=== PATIENT | female | born 1960 | race Caucasian/White ===

== ENCOUNTER 2020-11-27 12:45 | Outpatient (CLI) | payer MEDICARE, SELFPAY ==
--- NOTE | ~2020-11-27 | MR_ITS ---
EXAMINATION: MR cervical spine wo/w con EXAM DATE: 11/27/2020 15:02 INDICATION: Neck pain. Multiple sclerosis. TECHNIQUE: Multi-sequential, multiplanar MR images of the cervical spine were obtained without contra st. Axial T2, axial T2 MERGE sequence. Sagittal T1, T2, T2 fat saturation images also obtained. Axi al T1 weighted sequence. Patient was then injected with 9 mL Multihance intravenous contrast and grace froy. Postcontrast axial and sagittal T1-weighted fat saturation sequences were obtained. FINDINGS: The vertebral bodies are aligned in the AP dimension. Vertebral body and disc heights are well-maintained. There are no suspicious marrow signal abnormalities. The spinal cord signal intensit y and intrinsic morphology is normal. Cervicomedullary junction is normal in appearance. Paraspinal s oft tissue is unremarkable. There are no areas of abnormal enhancement on the post contrast images. Level by level evaluation: C2-C3: Disc does not extend beyond the endplate margin. Uncovertebral joint arthropathy: None. Facet joint arthropathy: Mild bilateral. Neural foraminal stenosis: No stenosis. Central canal stenosis: No stenosis. C3-C4: Disc does not extend beyond the endplate margin. Uncovertebral joint arthropathy: None. Facet joint arthropathy: Mild bilateral. Neural foraminal stenosis: No stenosis. Central canal stenosis: No stenosis. C4-C5: Disc does not extend beyond the endplate margin. Uncovertebral joint arthropathy: Mild bilateral. Facet joint arthropathy: Mild bilateral. Neural foraminal stenosis: No stenosis. Central canal stenosis: No stenosis. C5-C6: Disc does not extend beyond the endplate margin. Uncovertebral joint arthropathy: Mild bilateral. Facet joint arthropathy: Mild bilateral. Neural foraminal stenosis: No stenosis. Central canal stenosis: No stenosis. C6-C7: There is a mild diffuse disc bulge. Uncovertebral joint arthropathy: Moderate left, mild to moderate right. Facet joint arthropathy: Mild to moderate left, no right. Neural foraminal stenosis: No stenosis. Central canal stenosis: No stenosis. C7-T1: Disc does not extend beyond the endplate margin. Uncovertebral joint arthropathy: Mild bilateral. Facet joint arthropathy: Mild bilateral. Neural foraminal stenosis: No stenosis. Central canal stenosis: No stenosis. IMPRESSION: 1. Normal cervical spinal cord signal. 2. C6-7 mild to moderate left neural foraminal stenosis, the most narrowed level. Reviewed, dictated and finalized at location A. IMPRESSION: 1. Normal cervical spinal cord signal. 2. C6-7 mild to moderate left neural foraminal stenosis, the most narrowed lev el.
--- NOTE | ~2020-11-27 | MR_ITS ---
EXAMINATION: MR brain/brain stem wo/w con EXAM DATE: 11/27/2020 15:02 INDICATION: Neck pain. Multiple sclerosis. Headache. TECHNIQUE: Magnetic resonance imaging (MRI) of the brain/brain stem obtained without contrast. Sagit laura T1, axial diffusion, gradient echo (T2*), T1, T2, FLAIR sequences obtained. Patient was then inj ected with 9 cc intravenous Multihance contrast. Axial and coronal postcontrast T1 weighted sequences obtained. Correlation is made to head CT 09/29/2018. FINDINGS: Scattered mild to moderate amount of small periventricular white matter T2/FLAIR signal hyp erintensities, could be microangiopathy or multiple sclerosis given history provided, some involve ma rgins of the corpus callosum and do have orientation perpendicular to the ventricles. No posterior fo ssa lesions. There are no areas of abnormal enhancement on the post contrast images. There are no areas of restricted diffusion to suggest acute infarction. There is no acute hemorrhage seen on the T2*, a hemosiderin sensitive sequence. No intraparenchymal brain mass. The ventricles a re normal in size. There are no extra-axial collections. Flow voids are seen in the cerebral arteri es on the T2-weighted sequences consistent with their expected patency. Patient has had bilateral oc ular lens surgery. Soft tissue is unremarkable. IMPRESSION: 1. Scattered periventricular signal abnormalities, could be microangiopathy or multiple sclerosis. 2. No acute findings. Reviewed, dictated and finalized at location A.
[2020-11-27 13:34] LABS: Estimated Glomerular Filt Rate > 60
== END 2020-11-27 12:46 | disposition home or self-care (01) ==
PROVIDERS: PCP Internal Medicine; Visit Provider Internal Medicine Rheumatology
DX: G35 Multiple sclerosis (principal)
CPT/HCPCS: 70553; 72156; A9577

== ENCOUNTER 2021-02-24 10:47 | Outpatient (CLI) | payer MEDICARE, SELFPAY ==
--- NOTE | ~2021-02-24 | US_ITS ---
US venous doppler [facility] DATE: 02/24/2021 11:21 INDICATION: Left lower extremity pain. History of deep venous thrombosis. TECHNIQUE: Real-time and color flow imaging and Doppler analysis of the veins of the left lower extre mity COMPARISON: None FINDINGS: The left greater saphenous vein is patent. There is spontaneous and phasic flow and normal augmentation and color flow signal and normal zenia fabio of the deep veins of the left leg. IMPRESSION: Normal examination Reviewed, dictated and finalized at Location A. Reviewed, dictated and finalized at location A. IMPRESSION: Normal examination
== END 2021-02-24 10:48 | disposition home or self-care (01) ==
LOC: ANHIMG 10:51
PROVIDERS: PCP Internal Medicine; Visit Provider Nurse Practitioner
DX: M79.605 Pain in left leg (principal); R60.9 Edema, unspecified
CPT/HCPCS: 93971

== ENCOUNTER 2021-04-30 10:53 | Outpatient (CLI) | payer MEDICARE, SELFPAY ==
--- NOTE | ~2021-04-30 | XR_ITS ---
EXAMINATION: XR hip LT min 2V DATE: 04/30/2021 11:23 INDICATION: Left lower limb pain. TECHNIQUE: 2 views of left hip were obtained. COMPARISON: Left hip radiographs 08/08/2007 FINDINGS: Bone alignment is normal. No fracture. There is mild left hip osteoarthritis. IMPRESSION: 1. Mild left hip osteoarthritis. Reviewed, dictated and finalized at location A.
--- NOTE | ~2021-04-30 | XR_ITS ---
EXAMINATION: XR lumbar spine 2-3V DATE: 04/30/2021 11:24 INDICATION: Left-sided low back pain TECHNIQUE: Anteroposterior and lateral views of the lumbar spine, and cone-down lateral view of the l umbosacral junction were obtained. COMPARISON: 04/07/2018 FINDINGS: There is no fracture, dislocation, or subluxation. There is unchanged mild to moderate loss of intervertebral disc space height at L4-5. There is mild loss of intervertebral disc space height throughout the remainder of the lumbar spine. The vertebral body heights are maintained. Small degene rative osteophytes project from the anterior endplates of multiple vertebral bodies. There is unchang ed mild to moderate facet osteoarthritis at L4-5 and L5-S1. IMPRESSION: 1. Mild lumbar spondylosis without acute findings or significant interval change. Reviewed, dictated and finalized at location B. IMPRESSION: 1. Mild lumbar spondylosis without acute findings or significant interval nadira anton
== END 2021-04-30 10:54 | disposition home or self-care (01) ==
PROVIDERS: PCP Internal Medicine; Visit Provider Internal Medicine
DX: M47.817 Spondylosis without myelopathy or radiculopathy, lumbosacral region (principal); M17.12 Unilateral primary osteoarthritis, left knee
CPT/HCPCS: 72100; 73502

== ENCOUNTER 2021-06-04 13:49 | Outpatient (CLI) | payer MEDICARE, SELFPAY ==
--- NOTE | ~2021-06-04 | MR_ITS ---
EXAMINATION: MR lumbar spine wo con DATE: 06/04/2021 14:50 INDICATION: Left leg pain. TECHNIQUE: Magnetic resonance imaging (MRI) of the lumbar spine was performed without intravenous con trast. Sequences included sagittal T2-weighted FSE, sagittal T2-weighted FS FSE, sagittal T1-weighted FSE, and axial T2-weighted FSE. COMPARISON: Lumbar spine MRI 11/07/2018 FINDINGS: Bone alignment is normal. There are Schmorl's nodes at L3-L4. There is mildly decreased dis c height at L4-L5. The distal spinal cord signal intensity is normal. The conus medullaris is at T12. The following disc levels are specifically discussed: L1-L2: The disc is bulging with superimposed left foraminal extrusion. There is mild bilateral facet joint osteoarthritis. There is mild bilateral neural foraminal stenosis. There is no central canal st enosis. L2-L3: The disc is bulging. There is mild bilateral facet joint osteoarthritis. There is mild bilater al neural foraminal stenosis. There is mild central canal stenosis. L3-L4: The disc is mildly bulging. There is severe bilateral facet joint osteoarthritis. There is mil d bilateral neural foraminal stenosis. There is no central canal stenosis. L4-L5: The disc is bulging and has an annular fissure. There is moderate right and severe left facet joint osteoarthritis. There is mild bilateral neural foraminal stenosis. There is mild central canal stenosis. L5-S1: The disc is bulging with superimposed left subarticular zone extrusion with mass effect on lef t S1 nerve root in left lateral recess. There is moderate right and severe left facet joint osteoarth ritis. There is mild bilateral neural foraminal stenosis. There is mild central canal stenosis. There is severe stenosis of left lateral recess. IMPRESSION: 1. New extrusion at L5-S1 with mass effect on left S1 nerve root. 2. Otherwise mild lumbar spondylosis. Reviewed, dictated and finalized at location A.
== END 2021-06-04 13:50 | disposition home or self-care (01) ==
LOC: ANHIMG 13:55
PROVIDERS: PCP Internal Medicine; Visit Provider Internal Medicine
DX: M47.817 Spondylosis without myelopathy or radiculopathy, lumbosacral region (principal); M48.07 Spinal stenosis, lumbosacral region
CPT/HCPCS: 72148

== ENCOUNTER 2021-12-07 08:30 | Emergency (ER) | payer MEDICARE, MEDICAID, SELFPAY ==
[2021-12-07] VITALS (7 sets, daily range): BP systolic 119–147; BP diastolic 74–95; PULSE 67–84; RESP 10–20; TEMP 36.7; O2SAT 98–100
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
--- NOTE | 2021-12-07 08:35 | ECG_ITS ---
Measurements Intervals [employer] Rate: 74 P: 30 HI: 142 QRS: 89 QRSD: 92 T: 76 QT: 388 QTc: 431 Interpretive Statements SINUS RHYTHM BASELINE ARTIFACT BORDERLINE ST ABNORMALITY INFERIOR LEADS BORDERLINE ECG COMPARED TO ECG 11/02/2018 11:56:57 HEART RATE HAS DECREASED Electronically Signed On 12-07-2021 11:30:57 CDT by Dane Mccain M.D.
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
--- NOTE | 2021-12-07 08:50 | PC.NURSE ---
Pt tells this nurse that she used Valium and 2 pinches of pot this am. Also take Fentanyl for her MD.
[2021-12-07 09:33] LABS: Basophils Percent Auto 0.6 % (0.2-1.2); Eosinophils Absolute Auto 0.1 K/mm3 (0-0.3); Hemoglobin 14.3 g/dL (12.0-15.0); Immature Granulocyte Absolute 0.02 K/mm3 (0.00-0.031); Immature Granulocyte Percent A 0.3 % (0-0.5); Lymphocytes Percent Auto 11.3 % (18.3-44.2); Mean Corpuscular HGB Conc 32.5 g/dl (32-36); Mean Corpuscular Volume 92.4 fl (80-100); Monocytes Absolute Auto 0.9 K/mm3 (0.1-0.6); Monocytes Percent Auto 12.9 % (2.6-8.5); Neutrophils Absolute Auto 5.2 K/mm3 (1.3-6.7); Neutrophils Percent Auto 72.9 % (45.5-73.1); Platelet Count Result 292 k/mm3 (150-375); Red Blood Count 4.76 M/mm3 (4.2-5.4); White Blood Count 7.1 K/mm3 (4.5-10.0)
[2021-12-07 09:42] LABS: Ethanol < 10 mg/dL (<10)
[2021-12-07 09:43] LABS: Alanine Aminotransferase 16 U/L (4-35); Albumin Level 4.1 g/dL (3.5-5.1); Alkaline Phosphatase 85 U/L (38-126); Anion Gap 5 mmol/L (8-16); Aspartate Amino Transferase 28 U/L (14-36); Bilirubin,Total 0.2 mg/dL (0.2-1.3); Blood Urea Nitrogen 16 mg/dL (7-17); Calcium 8.4 mg/dL (8.4-10.2); Carbon Dioxide 32 mmol/L (22-30); Chloride 99 mmol/L (98-107); Estimated CRCL calculation 64 ml/min; Estimated Glomerular Filt Rate > 60; Glucose 75 mg/dL (65-110); Potassium 3.7 mmol/L (3.4-5.0); Sodium 136 mmol/L (137-145)
[2021-12-07 09:55] LABS: Appearance Urine Clear (Clear); Bilirubin Urine Negative (Negative); Blood Urine Negative (Negative); Color Urine Yellow (Yellow); Glucose Urine UA Negative (Negative); Ketones Urine Negative (Negative); Leukocyte Esterase Ur 1+ LEU/UL (Negative); Nitrate Urine Negative (Negative); Protein Urine Negative (Negative); Specific Grav Ur >= 1.030 (1.001-1.035); Urobilinogen Urine 0.2 mg/dL (<2.0); pH Urine 5.5 (5.0-9.0)
[2021-12-07 10:00] LABS: Amphetamine Screen Urine Positive (Negative); Barbiturate Screen Urine Negative (Negative); Benzodiazepines Screen Urine Positive (Negative); Cannabinoid Screen Urine Positive (Negative); Cocaine Screen Urine Negative (Negative); Methadone Screen Urine Negative (Negative); Opiate Screen Urine Positive (Negative); Phencyclidine Screen Urine Negative (Negative)
[2021-12-07 10:04] LABS: INR 1.2; Prothrombin Time 14.8 Seconds (11.1-14.7)
[2021-12-07 10:05] LABS: Partial Thromboplastin Time 37.6 SECONDS (22.3-36.8)
[2021-12-07 10:06] LABS: Mucus Urine Rare /lpf; Squamous Epithelial Cell Urine Few /hpf (Few)
[2021-12-07 10:07] LABS: Add Urine Microscopic? YES
--- NOTE | 2021-12-07 10:45 | PC.NURSE ---
Patient able to ambulate without difficulty. EDP [place] notified.
[2021-12-07] MEDS: NITROFURANTOIN MONOHYD MACROCR 100 MG CAP PO (11:19)
== END 2021-12-07 11:36 | disposition home or self-care (01) ==
PROVIDERS: Emergency Provider Emergency Medicine; PCP Internal Medicine
DX: R41.82 Altered mental status, unspecified (principal); F19.10 Other psychoactive substance abuse, uncomplicated; M54.9 Dorsalgia, unspecified; G89.29 Other chronic pain; F17.210 Nicotine dependence, cigarettes, uncomplicated; Z79.01 Long term (current) use of anticoagulants; Z79.899 Other long term (current) drug therapy; R94.31 Abnormal electrocardiogram [ECG] [EKG]; V47.0XXA Car driver injured in collision with fixed or stationary object in nontraffic accident, initial encounter
CPT/HCPCS: 36415; 70450; 71045; 72125; 73502; 80053; 80307; 81001; 85025; 85610; 85730; 87086; 87088; 93005; 99284; A9270

== ENCOUNTER 2022-03-15 08:29 | Outpatient (CLI) | payer MEDICARE, MEDICAID, SELFPAY ==
--- NOTE | ~2022-03-15 | XR_ITS ---
XR_CERV2-3V_CR 03/15/2022 09:04 Indication: Radiculopathy. Neck pain. Procedure: 4 views of the cervical spine Comparison: 12/05/2018 Findings: Vertebral body heights are maintained. No fracture or traumatic malalignment. No prevertebr al soft tissue swelling. There is mild uncinate degenerative change. Port catheter tip not visualized . Lung apices are unremarkable. Odontoid process is normal. There are mild uncinate degenerative choi ges at C5-6 and C6-7. Mild disc narrowing at C6-7 and C7-T1. Impression: 1: Mild cervical spondylosis. Reviewed, dictated and finalized at location A. Impression: 1: Mild cervical spondylosis.
--- NOTE | ~2022-03-15 | XR_ITS ---
XR lumbar spine 2-3V 03/15/2022 09:04 Indication: Low back pain. Radiculopathy. Procedure: 3 views lumbar spine Comparison: Comparison to multiple prior studies sequentially, with oldest reviewed study dated 09/2016. Findings: Vertebral body heights are maintained. There is mild degenerative changes of the endplates at L3-4. There is mild multilevel facet hypertrophy at L3-4, L4-5 and L5-S1. No acute fracture or tra umatic malalignment. No evidence for spondylolisthesis. Pedicles intact. There are marginal osteophyt es laterally at multiple levels. Sacral foramen are symmetric. Impression: 1: Mild lumbar spondylosis. Reviewed, dictated and finalized at location A. Impression: 1: Mild lumbar spondylosis.
--- NOTE | ~2022-03-15 | XR_ITS ---
EXAMINATION: XR thoracic spine 3V DATE: 03/15/2022 09:04 INDICATION: Thoracic back pain TECHNIQUE: AP, lateral and lateral swimmer's views of the thoracic spine were obtained. COMPARISON: MRI, 11/07/2018 FINDINGS: A right internal jugular Port-A-Cath is noted. Bone alignment is normal. There is no fractu re. The vertebral body heights are maintained. There is mild loss of intervertebral disc space height at multiple levels in the thoracic spine. Small degenerative osteophytes project from the anterior e ndplates of multiple vertebral bodies. IMPRESSION: 1. Mild thoracic spondylosis without acute findings or significant interval change. Reviewed, dictated and finalized at location B. IMPRESSION: 1. Mild thoracic spondylosis without acute findings or significant interval jose e.
== END 2022-03-15 08:30 | disposition home or self-care (01) ==
PROVIDERS: PCP Internal Medicine; Visit Provider Pain Medicine Interventional Pain Medicine
DX: M54.14 Radiculopathy, thoracic region (principal); M54.12 Radiculopathy, cervical region; M54.17 Radiculopathy, lumbosacral region; M47.814 Spondylosis without myelopathy or radiculopathy, thoracic region; M47.812 Spondylosis without myelopathy or radiculopathy, cervical region; M47.816 Spondylosis without myelopathy or radiculopathy, lumbar region
CPT/HCPCS: 72040; 72072; 72100

== ENCOUNTER 2022-04-05 05:10 | Day surgery (SDC) | payer MEDICARE, MEDICAID, SELFPAY ==
[2022-03-30 14:53] VITALS: BMI 19.0
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
[2022-04-05 10:25] VITALS: BP 101/70; PULSE 79; RESP 18; TEMP 36.3; O2SAT 98
--- NOTE | 2022-04-05 10:27 | SUR.PREOP ---
Patient has fent patch on lower back. Notified Dr. Jay of this, ok for patient to leave this in place. No new orders at this time.
--- NOTE | 2022-04-05 10:39 | PM.IMHP ---
H&P: HPI History of Present Illness Date/Time: 04/05/22 10:39 Chief Complaint: Family history of colon cancer. Narrative: This is a 61-year-old white female patient referred by primary care service because of family history of colon cancer. Patient reports her mother recently with colon cancer her father with colon cancer 10 years ago. Patient is reported to have had colon polyps in 2018. Previous colonoscopy by Dr. Nba Webster revealed poor preparation. Patient presents today for follow-up colonoscopy. Patient denies any blood in her stools. She does have a past history of multiple sclerosis. She reports having had previous extensive surgery on her thyroid gland in the past. Review of Systems Review of Systems: Review of systems noncontributory. [facility] Past Medical History Medical History (Updated 04/05/22 @ 10:41 by Nba Simpson MD) Chronic pain fentanyl patch Chronic, continuous use of opioids Current smoker Dysphagia, unspecified Hx of deep venous thrombosis Hyperlipidemia Multiple sclerosis Paresthesias in left hand Partial thickness burn Port-A-Cath in place Protein C deficiency Protein S deficiency Right thigh pain Screening for breast cancer Screening for breast cancer Screening for colon cancer Surgical History Surgical History (Updated 04/02/22 @ 14:46 by Teodoro Saavedra DO) History of appendectomy Family History Family History Sibling Patient's sister is in good health Father Carcinoma of colon, Onset Age: 73 Patient's father is Mother Heart disease Social History Social History Smoking packs per day: 0.5 Smoking cigarettes per day: 10.0 Years smoked: 42 Smoking pack-years: 21.00 Smoking status: Heavy tobacco smoker Tobacco type: cigarettes Second hand tobacco smoke exposure: Yes Alcohol intake: current Alcohol use details: rarely Substance use: current Substance use type: marijuana Living arrangements: alone Spiritual care concerns: No Meds Home Medications and Allergies Home Medications Medication Instructions Recorded Confirmed Type fentanyl 50 mcg/hr transdermal 1 patch transdermal Q72H 08/28/19 03/30/22 History patch dextroamphetamine sulfate 15 mg 15 mg PO BID 05/22/20 03/30/22 History capsule,extended release trazodone 50 mg tablet See Rx Instructions .Route 05/02/21 03/30/22 Rx .COMPLEX #60 tabs carisoprodol 350 mg tablet 350 mg PO DAILY 12/07/21 03/30/22 History apixaban 5 mg tablet (Eliquis) 5 mg PO DAILY #90 tabs 01/21/22 03/30/22 Rx diazepam 5 mg tablet 5 mg PO TID PRN anxiety #90 tabs 02/10/22 03/30/22 Rx Allergies Allergy/AdvReac Type Severity Reaction Status Date / Time adhesive tape Allergy Intermediate BLISTERS Verified 04/05/22 10:23 sertraline AdvReac Severe Headache Verified 04/05/22 10:23 Vital Signs Vital Signs - 24 hr 04/05/22 10:25 Temperature 97.4 F L Pulse Rate 79 Respiratory Rate 18 Blood Pressure 101/70 Pulse Oximetry 98 Oxygen Delivery Room Air Exam Narrative: Physical exam reveals patient to be alert. Vital signs stable. HEENT exam is unremarkable. Patient is anicteric. Lungs are clear to auscultation and percussion. Heart is without murmur or extra sounds. Abdominal exam bowel sounds are present soft nontender with no organomegaly. Digital external rectal exam is normal. Assessment and Plan Assessment and plan (1) Family hx of colon cancer: Code(s): Z80.0 - Family history of malignant neoplasm of digestive organs Status: Acute Assessment and Plan: Patient reports family history of colon cancer in both mother and father. She herself apparently had colon polyps several years ago. Plan is for surveillance colonoscopy at this time.
[2022-04-05] MEDS: LACTATED RINGERS 1,000 ML 150 ML IV CONT (10:40)
[2022-04-05 10:58] VITALS: BP 81/49; PULSE 64; RESP 20; O2SAT 98
[2022-04-05 11:08] VITALS: BP 95/55; PULSE 62; RESP 18; O2SAT 100
== END 2022-04-05 11:36 | disposition home or self-care (01) ==
PROVIDERS: PCP Internal Medicine; Visit Provider Internal Medicine Gastroenterology
PROC: 0DJD8ZZ Inspection of Lower Intestinal Tract, Via Natural or Artificial Opening Endoscopic (ICD-10-PCS; CPT 45378; principal; 2022-04-05 11:00)
DX: Z09 Encounter for follow-up examination after completed treatment for conditions other than malignant neoplasm (principal); Z80.0 Family history of malignant neoplasm of digestive organs; G35 Multiple sclerosis; E78.5 Hyperlipidemia, unspecified; D68.59 Other primary thrombophilia; G89.29 Other chronic pain; F17.210 Nicotine dependence, cigarettes, uncomplicated; F12.90 Cannabis use, unspecified, uncomplicated; Z86.718 Personal history of other venous thrombosis and embolism; Z79.01 Long term (current) use of anticoagulants; Z79.891 Long term (current) use of opiate analgesic
CPT/HCPCS: 45378; J2704; J7120

== ENCOUNTER 2022-06-11 15:30 | Outpatient (RCR) | payer MEDICARE, MEDICAID, SELFPAY ==
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
--- NOTE | 2022-04-08 13:30 | PCPTNOTE ---
Patient called & cancelled scheduled appointment this date due to having car trouble.
--- NOTE | 2022-04-21 11:41 | PTOPPROG ---
Evaluation Information Assessment Status Re-evaluation Subjective Information Alexandra reports: therapy has helped her walk better, not have to use the crutches as much; with the MS , her balance is always bad; wants to continue therapy; Assessment PT Clinical Summary Alexandra has received 7 PT sessions for the diagnosis of L hip pain, lumbar radicular pain. Compared to the initial evaluation, her pain rating has decreased by 1 at the low and high ratings; continues to have radicular pain into posterior L leg to foot; continues to have tenderness over L lumbar-sacral and mid buttock areas; strength of L hip has increased; L hamstring flexibility has increased; gait pattern has improved; education has been provided for home exercises, posture and back pain management. The goals were partially achieved. Continue PT treatment to further decrease her pain and increase strength and mobility skills. Plan of Care Interventions Electrical Stimulation,Gait Training,Hot Pack/Cold Pack,Manual Therapy,Mechanical Traction,Patient/ Caregiver Education,Therapeutic Activities, Therapeutic Exercise,Ultrasound PT Services Indicated Yes Treatment Frequency and 2x/wk for 4 weeks Duration These treatments will address the objective and functional deficits as defined above. The patient will be advanced safely and appropriately in order for the patient to progress towards his/her prior level of function. Additional exercises will be introduced and as well as a comprehensive home exercise program upon discharge, if needed, ?to ensure carryover of functional gains achieved in the clinic. This treatment plan has been reviewed and agreement upon by the patient.
--- NOTE | 2022-05-05 11:04 | PCPTNOTE ---
Patient called & cancelled scheduled appointment this date due to having a headache.
--- NOTE | 2022-05-07 10:15 | PCPTNOTE ---
Patient called & cancelled scheduled appointment this date due to having a sore throat and a cough. Patient is scheduled for her next appointment on 05/11/22.
--- NOTE | 2022-05-19 14:13 | PTOPEVAL1 ---
Assessment and note entered by Asiya Whitt, PT Evaluation Information Assessment Status Re-evaluation Subjective Information Alexandra states: with walking, have to really focus walking right, putting heel down first; pain is less with the treatments; have been working on getting off these medicines; used crutches 4-5 days in the past week for walking; want to continue therapy--feel like it is helping. Reported Pain Level Pain Score Self Report low back and L LE Additional Pain Score Comments range of 6-9/10; reports standing/walking tolerance of 30-45 min; radicular pain into L LE to toes intermittently with constant into L lateral mid calf--locked up and tight; electrical stim helps pain--do not have a home unit; in bed, rolls L leg out/ER pain is less Assessment PT Clinical Summary Alexandra has had 14 PT sessions. Compared to the last reevaluation: pain rating is the same at the low rating and 1 more at the high rating but pt reports she is better ; radicular pain into L LE is the same; reported standing/ walking tolerance is better, from 20-30 min to 30- 45 min; improved with supine L hip flexion and ER motions does not have pain; functional strength with supine and side lying L hip exercises are slightly less; single leg standing time is increased, but still unstable at hip/trunk; Modalities help to decrease her pain and HEP has been progressed. Continue PT treatment to further decrease her pain , increase trunk and hip strength. Plan of Care Interventions Electrical Stimulation,Gait Training,Manual Therapy,Mechanical Traction,Patient/Caregiver Education,Therapeutic Activities,Therapeutic Exercise,Self-Care/Home Management PT Services Indicated Yes Treatment Frequency and 2x/wk for 3 weeks Duration These treatments will address the objective and functional deficits as defined above. The patient will be advanced safely and appropriately in order for the patient to progress towards his/her prior level of function. Additional exercises will be introduced and as well as a comprehensive home exercise program upon discharge, if needed, ?to ensure carryover of functional gains achieved in the clinic. This treatment plan has been reviewed and agreement upon by the patient.
--- NOTE | 2022-06-03 14:22 | PCPTNOTE ---
Patient did not show up for scheduled appointment this date. Called left voicemail about missed appointment and up coming appointment.
--- NOTE | 2022-06-11 16:08 | PTOPDC ---
Assessment and note entered by Asiya Whitt, PT Evaluation Information Assessment Status Discharge Subjective Information Alexandra reports: doing better, loosening up in L hip , is doing the exercises; pain is still there, is irritating but not as bad; Reported Pain Level Pain Score Self Report Additional Pain Score Comments pain range of 4-8/10; normal MS pain is 4-5/10 in legs; L hip pain is irritating pain-- pointed to lateral hip, lateral calf, proximal patella; intermittent to foot, usually constant to mid- lateral thigh; at home, is doing everything she needs to do inside and outside-takes more time and split up tasks due to pain; walks dogs about 4 blocks--hills and large blocks, cut grass; discussed self management for pain--heat, stretch, electrical stim, activity balance--activity/rest; Assessment PT Clinical Summary Alexandra has received 17 PT sessions for back and L leg pain. Compared to the last reevaluation: pain rating from 6-9/10 to 4-8/10; radicular pain into L LE is the same; hamstring length increased by 5' with SLR stretch; slight increase in L hip with supine SLR and increased single leg standing time; She has been educated on home exercises and pain management. The goals were partially met, Discharge PT services, she is to continue with HEP Plan of Care PT Services Indicated No
== END 2022-06-14 10:24 | disposition home or self-care (01) ==
LOC: ANHPT 15:30
PROVIDERS: PCP Internal Medicine; Visit Provider Nurse Practitioner
DX: M25.552 Pain in left hip (principal)
CPT/HCPCS: 97014; 97110; 97112; 97140; 97163; 97530; 99199; G0283

== ENCOUNTER 2022-06-24 09:45 | Outpatient (CLI) | payer MEDICARE, MEDICAID, SELFPAY ==
--- NOTE | ~2022-06-24 | XR_ITS ---
EXAMINATION: XR barium swallow DATE: 06/24/2022 10:33 INDICATION: Dysphagia. TECHNIQUE: The patient drank thick barium, gas-producing crystals, and thin barium. Fluoroscopic spot radiographs of the hypopharynx and esophagus were obtained. Fluoroscopy exposure time was 2.0 minut es. COMPARISON: None. FINDINGS: The pharynx is symmetric and without evidence of mass lesion or mucosal irregularity. The e sophagus is normal without mass or stricture. Esophageal motility is normal. There is no hiatal herni a. There was no gastroesophageal reflux with provocative maneuvers. IMPRESSION: 1. Normal esophagram. Reviewed, dictated and finalized at location B. IMPRESSION: 1. Normal esophagram.
== END 2022-06-24 09:46 | disposition home or self-care (01) ==
PROVIDERS: PCP Internal Medicine; Visit Provider Nurse Practitioner
DX: R13.10 Dysphagia, unspecified (principal)
CPT/HCPCS: 74220

== ENCOUNTER 2022-08-04 12:30 | Outpatient (RCR) | payer MEDICARE, MEDICAID, SELFPAY ==
--- NOTE | 2022-07-07 11:56 | PTOPEVAL1 ---
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 Patient reports it hurts with any weightbearing especially walking and stairs. She reports she has come to therapy before for the pain and it does help for awhile. She did get herself a TENS unit and is interested in a heel lift. Reported Pain Level Pain Score 9: Self Report Assessment PT Clinical Summary Alexandra is a 62 year old female coming into the clinic with chronic L hip pain. She presents with tightness in the hamstrings, and L piriformis. Weakness in L hip and knee, pain, and leg length discrepancy. The patient should benefit from a heel lift, manual therapy and modalities for pain control, and strengthening for the weakness. Plan of Care Interventions Check Out for Orthotic/Pr,Electrical Stimulation, Gait Training,Hot Pack/Cold Pack,Manual Therapy, Neuro Re-education,Patient/Caregiver Education, Therapeutic Activities,Therapeutic Exercise, Ultrasound PT Services Indicated Yes Treatment Frequency and 1x/wk for 4 weeks Duration These treatments will address the objective and functional deficits as defined above. The patient will be advanced safely and appropriately in order for the patient to progress towards his/her prior level of function. Additional exercises will be introduced and as well as a comprehensive home exercise program upon discharge, if needed, ?to ensure carryover of functional gains achieved in the clinic. This treatment plan has been reviewed and agreement upon by the patient.
--- NOTE | 2022-08-02 14:25 | PCPTNOTE ---
Patient did not show up for scheduled appointment this date. Called and had to leave a message.
--- NOTE | 2022-08-04 13:09 | PCPTNOTE ---
Patient did not show up for scheduled appointment this date. Called patient at [phone] with no answer left voicemail
--- NOTE | 2022-09-14 13:02 | PCPTNOTE ---
Admitting Provider: Attending Provider: Ole Valdes*Magaly*, DO Patient:Alexandra Welsh Date of :1960 Patient has not returned for any further treatments since 08/04/2022, therefore (he/she) will be discharged at this time. Patient?s initial visit was on 07/07/2022 10:30 and (he/she) had a total of 4___ visits. The goals have been not met. Thank you for referring this patient to [facility]. Please review, sign, date and return this discharge summary [id number]. I have been updated about the patient's current status and I agree with discharge from the above service at this time. Referring Physician Date
== END 2022-09-14 15:16 | disposition home or self-care (01) ==
LOC: ANHPT 12:30
PROVIDERS: PCP Internal Medicine; Visit Provider Internal Medicine
DX: M25.552 Pain in left hip (principal)
CPT/HCPCS: 97014; 97110; 97140; 97162; 99199; G0283

== ENCOUNTER 2023-11-09 02:54 | Day surgery (SDC) | payer MEDICARE, SELFPAY ==
[2023-11-02 12:09] VITALS: BMI 22.8
--- NOTE | 2023-11-02 12:26 | PC.NURSE ---
Report to the Outpatient Waiting Room, entrance under the green pavilion located off [facility], at time 1130 on date 11/09/23. Planned Procedure Time: 1330. Time changes happen often and if your time is changed the preop area will call you the afternoon before. - You and your visitor will be asked to self-screen and do not enter if you have any COVID symptoms. - A mask is optional within the hospital at this time. Patients may have clear liquids (water, carbonated beverages, clear teas, apple juice) until 3 hours prior to surgery with a maximum of 20 ounces. - No food from midnight until time of surgery Take the following medications with a SIP of water the morning of surgery: PAIN MEDS NEEDED, DULOXETINE DO NOT STOP ANY OF YOUR OTHER PRESCRIPTION MEDICATIONS PRIOR TO SURGERY ?EXCEPT THE FOLLOWING Medications to discontinue per physician: ELIQUIS Date to take last dose: 11/06/23 Please no make-up, nail citizen of [place], hairspray, perfume, deodorant, or body powder the day of surgery. No jewelry (including any body piercings) or valuables the day of surgery, leave them at home. Please take a shower or bath the night before, or the morning of, surgery with an antibacterial soap. Wear comfortable, loose fitting clothing. - Jewelry must be removed prior to entering the operating room. Rings and piercings that are not removed may be cut off. - The hospital will not accept responsibility for valuables. - Please leave all valuables, including medications, at home the day of surgery. If you are going home after surgery, a licensed driver starting gate must drive you home. - NO public transportation without another adult if you receive anesthesia. - We recommend that an adult stay with you for 24 hours following discharge. - We also recommend that you do not drive, make important decision, drink alcoholic beverages, or take any drugs that were not prescribed by your health care provider for at least 24 hours after your discharge time. Follow any additional instructions given to you from your surgeon. If you or anyone in your household have experienced Covid symptoms in the past week, please notify your surgeon or the nurse liaison at the phone number below for possible testing. Telephone instructions given to PT - DIANN YANEZ and asked if any additional questions and then verbalized understanding. Patient advised to call surgeon office or pre surgery nurse liaison [phone] if any additional questions.
[2023-11-09 12:10] VITALS: BP 150/85; PULSE 80; RESP 18; TEMP 36.6; O2SAT 99
[2023-11-09] MEDS: LACTATED RINGERS 1,000 ML 30 ML IV CONT (12:10)
--- NOTE | 2023-11-09 12:43 | WPDANESEPPF ---
Anes - Initial Pre Proc Eval Procedure: Operation Date: 11/09/23 13:30 Proposed Procedures p Removal Thiago Cath - Maeve Jensen MD Date/Time: 11/09/23 12:43 Surgeon: Maeve Jensen MD Pre Op Diagnosis: Port A Cath in place Patient Data Age: 63 Gender: F Height: 1.57 m Weight: 61.8 kg Allergies Allergy/AdvReac Type Severity Reaction Status Date / Time adhesive tape Allergy Intermediate BLISTERS Verified 11/09/23 11:46 cortisone Allergy Other Verified 11/09/23 11:46 sertraline AdvReac Severe Headache Verified 11/09/23 11:46 Home Medications Medication Instructions Recorded Confirmed Type fentanyl 50 mcg/hr transdermal 1 patch transdermal Q72H 08/28/19 11/09/23 History patch dextroamphetamine sulfate 15 mg 15 mg PO BID #60 caps 10/01/22 11/09/23 Rx capsule,extended release atorvastatin 20 mg tablet 20 mg PO DAILY #100 tabs 01/06/23 11/09/23 Rx acetaminophen 300 mg-codeine 60 mg 1 tablet PO BID PRN Pain 02/10/23 11/09/23 History tablet apixaban 5 mg tablet (Eliquis) 5 mg PO DAILY #90 tabs 03/21/23 11/09/23 Rx duloxetine 30 mg capsule,delayed 30 mg PO DAILY #30 caps 10/27/23 11/09/23 Rx release trazodone 150 mg tablet 150 mg PO QHS PRN sleep #30 tabs 10/27/23 11/09/23 Rx tizanidine 4 mg tablet 4 mg PO BID 11/02/23 11/09/23 History Patient hx anesthesia problems: none Family hx anesthesia problems: none Results Review: All pre-operative results and documents have been reviewed as part of the pre-operative evaluation. [facility] Past Medical History Medical History Chronic pain fentanyl patch Chronic, continuous use of opioids Current smoker Dysphagia, unspecified Hx of deep venous thrombosis Hyperlipidemia Multiple sclerosis Paresthesias in left hand Partial thickness burn Port-A-Cath in place Protein C deficiency Protein S deficiency Right thigh pain Screening for breast cancer Screening for breast cancer Screening for colon cancer Surgical History Surgical History History of appendectomy Family History Family History Sibling Patient's sister is in good health Father Carcinoma of colon, Onset Age: 73 Patient's father is Mother Heart disease Social History Social History Smoking packs per day: 0.5 Smoking cigarettes per day: 10.0 Years smoked: 40 Smoking pack-years: 20.00 Smoking status: Current every day smoker Tobacco type: cigarettes Second hand tobacco smoke exposure: Yes Alcohol intake: never Substance use: current Substance use type: marijuana Lack of Transportation: YES Lack of Food: Sometimes True Current Housing: I Have Housing Concerned About Future Housing: No Difficulty Paying Gas/Electric Bills: YES Difficulty Paying for Meds: No Currently Unemployed: No Education: Associate Degree Difficulty w/ Childcare or Family Care: No Living arrangements: with family Gender identity (if verbalized by the patient): Female Spiritual care concerns: No Anes - Eval Final PreProcedure Day of Procedure 11/09/23 12:43 Patient weight: normal Heart: regular rate and rhythm Lungs: clear to auscultation Airway: Mallampati scale class II Neurological: alert and oriented Last oral intake: >/= 8 hours ASA classification: III Emergent: no Anesthetic plan: proceed Anesthesia type and monitoring: general GIVS and standard monitoring Results Review: All pre-operative results and documents have been reviewed as part of the pre-operative evaluation. Informed Consent: The patient's anesthetic plan and its attendant risks and benefits were discussed with the patient/family/POA. Questions were solicited and answers provided to the satisfaction of the patient/family/POA.
--- NOTE | 2023-11-09 13:08 | PM.IMHP ---
H&P: HPI History of Present Illness Date/Time: 11/09/23 13:08 Chief Complaint: removal venous access device Narrative: The patient is a 63-year-old female with multiple medical issues including multiple sclerosis, presenting to the hospital for venous access device removal. Patient reports that she had a port placed 15 years ago for treatment of her MS. The patient reports she received treatment for 10 years and that has since been discontinued. The patient reports that the port has not been used in approximately the last 5 years. The patient denies any issues with the port including signs or symptoms of infection. The patient reports that the area is somewhat uncomfortable especially with pressure and certain movements. Review of Systems Review of Systems: All systems reviewed & are unremarkable except as noted in HPI and below PMFSH Past Medical History Medical History Chronic pain fentanyl patch Chronic, continuous use of opioids Current smoker Dysphagia, unspecified Hx of deep venous thrombosis Hyperlipidemia Multiple sclerosis Paresthesias in left hand Partial thickness burn Port-A-Cath in place Protein C deficiency Protein S deficiency Right thigh pain Screening for breast cancer Screening for breast cancer Screening for colon cancer Surgical History Surgical History History of appendectomy Family History Family History Sibling Patient's sister is in good health Father Carcinoma of colon, Onset Age: 73 Patient's father is Mother Heart disease Social History Social History Smoking packs per day: 0.5 Smoking cigarettes per day: 10.0 Years smoked: 40 Smoking pack-years: 20.00 Smoking status: Current every day smoker Tobacco type: cigarettes Second hand tobacco smoke exposure: Yes Alcohol intake: never Substance use: current Substance use type: marijuana Lack of Transportation: YES Lack of Food: Sometimes True Current Housing: I Have Housing Concerned About Future Housing: No Difficulty Paying Gas/Electric Bills: YES Difficulty Paying for Meds: No Currently Unemployed: No Education: Associate Degree Difficulty w/ Childcare or Family Care: No Living arrangements: with family Gender identity (if verbalized by the patient): Female Spiritual care concerns: No Meds Home Medications and Allergies Home Medications Medication Instructions Recorded Confirmed Type fentanyl 50 mcg/hr transdermal 1 patch transdermal Q72H 01/07/20 03/20/24 History patch dextroamphetamine sulfate 15 mg 15 mg PO BID #60 caps 10/01/22 11/09/23 Rx capsule,extended release atorvastatin 20 mg tablet 20 mg PO DAILY #100 tabs 01/06/23 11/09/23 Rx acetaminophen 300 mg-codeine 60 mg 1 tablet PO BID PRN Pain 02/10/23 11/09/23 History tablet apixaban 5 mg tablet (Eliquis) 5 mg PO DAILY #90 tabs 03/21/23 11/09/23 Rx duloxetine 30 mg capsule,delayed 30 mg PO DAILY #30 caps 10/27/23 11/09/23 Rx release trazodone 150 mg tablet 150 mg PO QHS PRN sleep #30 tabs 10/27/23 11/09/23 Rx tizanidine 4 mg tablet 4 mg PO BID 11/02/23 11/09/23 History Allergies Allergy/AdvReac Type Severity Reaction Status Date / Time adhesive tape Allergy Intermediate BLISTERS Verified 11/09/23 11:46 cortisone Allergy Other Verified 11/09/23 11:46 sertraline AdvReac Severe Headache Verified 11/09/23 11:46 Exam Const: General: cooperative, comfortable and no acute distress Chest: Other: RIJ VAD - C/D/I, no s/s infection Resp: Auscultation: clear to auscultation bilaterally Cardio: Rate: regular rate Rhythm: regular rhythm GI: Inspection: normal to inspection Assessment and Plan Assessment and plan (1) Port-A-Cath in place: Code(s): Z95.828
--- NOTE | 2023-11-09 13:14 | WPDHPUPDATE1 ---
History and Physical Update Update Date/Time: 11/09/23 13:14 History and Physical has been reviewed, including an updated exam of the patient. There are NO changes in the patient's condition. Risks, benefits, and alternatives have been discussed and questions answered. Patient agrees to proceed with procedure.
[2023-11-09] MEDS: ceFAZolin 2 GM/D5W 50 ML 2 GM/50 ML BAG IVPB (13:25)
[2023-11-09] MEDS: BUPIVACAINE/EPINEPHRINE 0.5% 50 ML VIAL 20 ML INFILTRATE (13:38)
[2023-11-09 13:53] VITALS: BP 95/54; PULSE 79; O2SAT 99
--- NOTE | 2023-11-09 13:53 | P.OP_ITS ---
Procedure Note - Detailed Date of Procedure 11/09/23 Pre-op Diagnosis Port A Cath in place Post-op Diagnosis Same Procedure Performed removal R chest VAD Surgeon Maeve Jensen MD Anesthesia MAC and Local Indications 63 y/o F s/p treatment for multiple sclerosis . Pt had R sided VAD placed about 15 years ago. Findings RIJ VAD Description of Procedure The patient was taken to the operating room and placed in the supine position. The patient was then prepped and draped in the normal sterile fashion. A time- out was then done to verify the patient's identity, as well as the procedure being performed. I began by localizing the area of the previously placed port in the right chest. After the area was adequately anesthetized, I made an incision through the previous incision to gain access to the port in the subcutaneous tissue. I was then able to identify the port and using dissection with the Bovie cautery, I was able to free the reservoir from the subcutaneous pocket. The reservoir was being held in by 2 sutures and these were subsequently cut. I was then able to remove the reservoir from the pocket. I then removed the catheter from the right internal jugular vein in full. I then held pressure at the level the right internal jugular vein for approximately 5 minutes. Hemostasis was noted and I irrigated the pocket. I then closed the subcutaneous tissue with 3-0 Vicryl suture. The skin was closed with 4-0 Monocryl subcuticular suture. Dermabond was placed on the wound. The patient tolerated the procedure well and was alert and awake in the operating room postoperative. The patient will be sent to the recovery room in stable condition. Estimated Blood Loss 5 Drains No Packing No Pathology None sent Complications No immediate complications Condition Stable Disposition PACU [facility] Billing Surgery - Charge Forward: Surgery Billing
[2023-11-09 14:20] VITALS: BP 129/80; PULSE 70
[2023-11-09 14:50] VITALS: BP 161/67; PULSE 95
[2023-11-09] MEDS: oxyCODONE HCL (*CRX) 5 MG TAB IR PO (14:56)
[2023-11-09 15:12] VITALS: BP 138/78; PULSE 81
== END 2023-11-09 15:14 | disposition home or self-care (01) ==
PROVIDERS: PCP Nurse Practitioner; Visit Provider Surgery
PROC: (CPT 36589; principal; 2023-11-09 13:30)
DX: Z45.2 Encounter for adjustment and management of vascular access device (principal); G35 Multiple sclerosis; E78.5 Hyperlipidemia, unspecified; D68.59 Other primary thrombophilia; Z79.891 Long term (current) use of opiate analgesic; Z86.718 Personal history of other venous thrombosis and embolism; F17.210 Nicotine dependence, cigarettes, uncomplicated; F12.90 Cannabis use, unspecified, uncomplicated
CPT/HCPCS: 36590; A9270; J0690; J1100; J2250; J2405; J2704; J3010; J7120

== ENCOUNTER 2023-12-06 10:19 | Outpatient (CLI) | payer MEDICARE, SELFPAY ==
--- NOTE | ~2023-12-06 | XR_ITS ---
AP view of the pelvis and AP and lateral views of the left hip Clinical history: Pain Findings: No acute fracture or dislocation is seen. Osseous alignment is anatomic. Bilateral hip and SI joint spaces are preserved. Soft tissues are unremarkable. Impression: No significant abnormality is seen. Reviewed, dictated and finalized at location . Impression: No significant abnormality is seen.
== END 2023-12-06 10:20 | disposition home or self-care (01) ==
PROVIDERS: PCP Nurse Practitioner; Visit Provider Nurse Practitioner
DX: M25.552 Pain in left hip (principal)
CPT/HCPCS: 73502

== ENCOUNTER 2023-12-13 10:09 | Outpatient (CLI) | payer MEDICARE, SELFPAY ==
--- NOTE | ~2023-12-13 | MM_ITS ---
EXAMINATION: MM screening michael BI w marbin HISTORY: Screening mammogram TECHNIQUE: Craniocaudal and mediolateral oblique 3-D tomosynthesis images were obtained and synthetic 2-D images were generated. CAD analysis was submitted and interpreted. COMPARISON: 11/18/2017 bilateral screening mammogram BREAST PARENCHYMAL COMPOSITION: The breasts are almost entirely fatty. FINDINGS: There is no evidence of suspicious mass, calcification, or architectural distortion to sugg est malignancy in either breast. There has been no suspicious interval change. IMPRESSION: 1. No mammographic evidence of malignancy. 2. Recommend routine screening mammography in one year. BI-RADS Category 1: Negative Reviewed, dictated and finalized at location A.
== END 2023-12-13 10:10 | disposition home or self-care (01) ==
LOC: ANHIMG 10:11
PROVIDERS: PCP Nurse Practitioner; Visit Provider Nurse Practitioner
DX: Z12.31 Encounter for screening mammogram for malignant neoplasm of breast (principal)
CPT/HCPCS: 77063; 77067

== ENCOUNTER 2024-06-05 10:38 | Outpatient (CLI) | payer MEDICARE, SELFPAY | END 2024-06-05 10:39 | disposition home or self-care (01) | LOC: ANHAUDIO 10:40 | PROVIDERS: PCP Nurse Practitioner; Visit Provider Nurse Practitioner | DX: H90.3 Sensorineural hearing loss, bilateral (principal); H93.13 Tinnitus, bilateral | CPT/HCPCS: 92557; 92567 ==

== ENCOUNTER 2025-01-15 10:23 | Outpatient (CLI) | payer MEDICARE, SELFPAY ==
--- NOTE | ~2025-01-15 | XR_ITS ---
Thoracic spine: Clinical Indication: Radiculopathy AP and lateral views were performed. No fracture is seen. There is normal alignment of the vertebrae. The intervertebral disc spaces appe ar normal. Paravertebral soft tissues appear normal. Impression: No significant abnormalities noted. Reviewed, dictated and finalized at [facility]. Impression: No significant abnormalities noted.
--- NOTE | ~2025-01-15 | XR_ITS ---
Lumbosacral Spine: AP and lateral views Clinical History: Pain Findings: The normal lordotic curve is maintained. The vertebral bodies and posterior elements are i ntact. There is moderate facet arthropathy throughout the lumbar spine. There are mild degenerative d isc changes. The sacroiliac joints are normally outlined. Impression: Mild to moderate degenerative change, as detailed above. Reviewed, dictated and finalized at location M. Impression: Mild to moderate degenerative change, as detailed above.
--- NOTE | ~2025-01-15 | XR_ITS ---
Cervical Spine: AP, lateral, open-mouth views Clinical History: Pain Findings: The normal lordotic curve is maintained. The vertebral bodies and posterior elements appea r intact. Minimal degenerative disc changes are present. Mild facet arthropathy present throughout th e cervical spine. Pre-vertebral soft tissues are unremarkable. Impression: Mild degenerative spondylosis, as above. Reviewed, dictated and finalized at location . Impression: Mild degenerative spondylosis, as above.
--- OUTSIDE RECORDS SUMMARY | 2025-01-15 10:30 | XMS_ITS | Clinical Summary ---
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 Chronic pain syndrome 10/01/2015 Social History Tobacco Use Types Packs/Day Years Used Date Smoking Tobacco: Never Assessed Comments Unknown Sex and Gender Information Value Date Recorded Sex Assigned at Not on file Legal Sex Female 9:37 PM CDT Gender Identity Not on file Sexual Orientation Not on file Plan of Treatment Health Maintenance Due Date Last Done Comments Hepatitis C Virus (HCV) Screening 1961 TdaP Immunization 1961 Cologuard 2011 Immunochemical Fecal Occult Blood 2011 Pneumococcal Immunization (5 0+ years) (1 of 1 - PCV) 2011 Zoster Immunization (1 of 2) 2011 Colonoscopy 02/10/2020 02/09/2018 Colorectal Cancer Screening 02/10/2020 Influenza Immunization (#1) 2024 SARS-COV-2 Immunization ( - 2023- season) 2024 Respiratory Syncytial Virus (RSV) Immunization (Adult) (1 - 1-dose 75+ series) 2036 02/09/2018 Hepatitis B Immunization Aged Out No longer eligible based on patient's age to complete this topic Meningococcal Immunization (ACWY) Aged Out No longer eligible based on patient's age to complete this topic Rotavirus Immunization Aged Out No lo nger eligible based on patient's age to complete this topic Procedures Procedure Name Priority Date/Time Associated Diagnosis Comments COLONOSCOPY Routine 02/09/2018 from Last 3 Months or Most Recently Relevant to Health Maintenance Results * COLONOSCOPY (02/09/2018) Nba Webster DO PROCEDURE/MINOR SURGICAL ORDERA BLES Final Result from Last 3 Months or Most Recently Relevant to Health Maintenance Insurance MEDICARE C [employer]ET[employer] Care Teams Glazier Apprentice Relationship Specialty Start Date End Date Ole Valdes DO [address] [address] PCP - General Internal Medicine 02/14/18 Nba Webster DO [address] [address] Gastroenterology 02/14/18
--- OUTSIDE RECORDS SUMMARY | 2025-01-15 10:30 | XMS_ITS | Clinical Summary ---
Author Organization [facility] Office Center Address [address] [place] [address] Care Team Providers Care Automobile Rental Clerk Name Role Phone Ketty Peraza NP Primary Care Provider [phone] Allergies Active Allergy Reactions Criticality Noted Date Comments Adhesive Tape-Silicones Blisters Reaction: BLISTERS, Acetaminophen-Codeine Hives Medium 05/28/2024 Medications fentaNYL (DURAGESIC) 50 mcg/hr 2 Active dextroamphetami ne ER (DEXEDRINE SPANSULE) 15 mg 24 hr capsule 2 Active Eliquis 5 mg tablet Take 1 tablet (5 mg total) by mouth daily 2 Active traZODone (DESYREL) 50 mg tablet Take 1 tablet (50 mg total) by mouth nightly at bedtime. 2 Active carisoprodoL (SOMA) 350 mg tablet 2 Active acetaminophen-c odeine (TYLENOL with CODEINE #4) 300-60 mg per tablet [address] (CYMBALTA) 30 mg capsule Take 1 capsule (30 mg total) by mouth daily 4 Active nortriptyline (PAMELOR) 50 mg capsule 4 Active tiZANidine (ZANAFLEX) 4 mg tablet 4 Active traZODone (DESYREL) 150 mg tablet Take 1 tablet (150 mg total) by mouth daily as needed 4 Active LORazepam (ATIVAN) 0.5 mg tablet Take 1-2 tablets (0.5-1 mg total) by mouth as needed for anxiety (before mri) 1-2 by mouth 30 minutes prior to procedure 2 tablet 4 Active metaxalone (SKELAXIN) 800 mg tablet Active pregabalin (LYRICA) 100 mg capsule Take 1 capsule (100 mg total) by mouth 2 (two) times a day 60 capsule 11 4 Active Active Problems Problem Noted Date Diagnosed Date Other specified depressive episodes 12/12/2023 Pain in left hip 12/12/2023 Radiculopathy, lumbar region 12/12/2023 Pain in both lower extremities 03/09/2022 Assessment & Plan (03/09/2022 4:07 PM CDT): Patient with history of chronic back pain with sciatica recently referred to pain management from her PCP is seeking a 2nd opinion for another pain management physician. Spoke to Dr. Laly Saxena on plan of care. Patient was seen here to rule out any vascular etiology for her pain. Venous and arterial studies today are negative for any acute DVT and waveforms to bilateral extremities are triphasic. Patient's symptoms are likely due to her chronic back pain and her likely neurogenic in nature. Encouraged patient to continue to follow-up with her PCP and with her new pain management physician or possibly be referred to Neuro Spine for any further management. Encouraged patient to return as needed for any arising vascular issues. Back pain of lumbosacral region with sciatica Assessment & Plan (02/04/2022 3:25 PM CDT): Impression: Patient has chronic low back pain that radiates from her hip to behind her knee. She has a history of receiving injections from Pain Management with no improvement. Patient complains of positional pain and standing, and prolonged sitting. Patient denies any symptoms suggestive of claudication, ischemic rest pain or ulcerations to her lower extremity. On exam, distal lower extremities pulses were nonpalpable bilaterally. Plan: Recommend patient to be further evaluated for chronic back pain. Due to nonpalpable pulses bilaterally, patient will follow-up in 2 weeks with an arterial Doppler. Tobacco abuse 02/04/2022 Assessment & Plan (03/09/2022 3:57 PM CDT): Patient with history of tobacco abuse who is a current everyday 1 pack per day smoker. I had a greater than 3 minute discussion with the patient on the importance of smoking cessation and the negative affects on their cardiovascular health. Patient understands importance of cessation. Assessment & Plan (02/04/2022 3:30 PM CDT): Impression: Patient is a current everyday smoker for the past 50 years. Patient reports smoking half pack a day Plan: Discussed with the patient greater than 3 minutes about the importance of smoking cessation and its health benefits. 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 She is currently being monitored by her primary care provider. Plan: Continue care as per primary care provider. Protein S deficiency 06/17/2009 Assessment & Plan (02/04/2022 3:33 PM CDT): Impression: Patient reports a history of protein S and protein C deficiency. She does have a history of a left lower extremity DVT approximately 5 years ago. Patient is currently on Eliquis. Patient denies any recent recurrence of DVTs to her lower extremities. Plan: Continue care as per primary care provider. Patient to follow-up in 2 weeks for re-evaluation with venous duplex to rule out any acute DVTs to her lower extremities. Quadriparesis 06/17/2009 Assessment & Plan (02/04/2022 3:29 PM CDT): Impression: Patient is a quadriparesis. She is requiring crutches to assist with ambulation. She also complains of weakness to her lower extremity that is getting worse. Plan: Continue care as per primary care provider. Surgical History Surgery Date Site/Laterality Comments PORT PLACEMENT CHEST >5 YEARS 03/13/2014 N/A Social History Tobacco Use Types Packs/Day Years Used Date Smoking Tobacco: Every Day Cigarettes 1.5 34.4 Started: 1990 Smokeless Tobacco: Never Tobacco Cessation:Ready to Q uit: No AUDIT-C Answer Date Recorded Q1: How often do you have a drink containing alcohol? Never 05/28/2024 Q2: How many drinks containi ng alcohol do you have on a typical day when you are drinking? Patient does not drink Q3: How often do you have si x or more drinks on one occasion? 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 Gender Identity Not on file Sexual Orientation Not on file Obstetrics History Last Filed Vital Signs Vital Sign Reading Time Taken Comments Blood Pressure 122/84 05/28/2024 2:29 PM CDT Pulse 74 05/28/2024 2:29 PM CDT Temperature - - Respiratory Rate - - Oxygen Saturation 95% 05/28/2024 2:29 PM CDT Inhaled Oxygen Concentration - - Weight 52.2 kg (115 lb) 05/28/2024 2:29 PM CDT Height 157.5 cm (5' 2) 05/28/2024 2:29 PM CDT Body Mass Index 21.03 05/28/2024 2:29 PM CDT Plan of Treatment Health Maintenance Due Date Last Done Comments Breast Cancer Screening-Mammogram 1961 Cervical Cancer Screening 1961 Colon Cancer Screening-Colonoscopy 1961 Depression Screening 1961 Hepatitis C Screening 1961 DTaP/Tdap/Td Vaccine (1 - Tdap) 1972 Hepatitis B Screening 1979 Regular Well Visit/Exam 18-64 1979 Pneumococcal vaccine <65 (1 of 2 - PCV) 1980 Lung Cancer Screening 2011 Zoster Vaccine (1 of 2) 2011 Covid-19 Vaccine ( season) 04/22/202410/2020, 03/29/2021 Influenza Vaccine (Season Ended) 2025 Insurance A[employer] MEDICARE GOLD Care Teams Automobile Rental Clerk Relationship Specialty Start Date End Date Ketty Peraza NP PCP - General Internal Medicine 12/08/21
--- OUTSIDE RECORDS SUMMARY | 2025-01-15 10:30 | XMS_ITS | Clinical Summary ---
Author Organization [facility] Address [address] [place] [address] Care Team Providers Care Barrow Worker Helper Name Role Phone Preston Patel MD Primary Care Provider [phone] Source Comments [facility] and Associated Physician Practices is amultiple site organization consisting of ambulatory clinics and hospital sitesin [place], [place], [place] and [place]. This disclosure is being madepursuant to the Care Everywhere program and may not contain all information available regarding this patient. Last updated 18.[facility] Allergies Active Allergy Reactions Criticality Noted Date Comments Adhesive Sensitivity Redness Medium 06/17/2009 Blister formation Medications * Be aware that medications may not be up to date on this document. Alwaysverify current medications with the patient. fentanyl (DURAGESIC) 100 MCG/HR patch Apply 2 Patches to skin every 3 days. Active pregabalin (LYRICA) 150 MG capsule Take 150 mg by mouth 3 times daily. Active diazepam (VALIUM) 5 MG tablet Take 5 mg by mouth every 6 hours as needed for Anxiety. Active dextroamphetami ne sr 24hr (DEXEDRINE SPANSULE) 15 MG capsule Take 15 mg by mouth 2 times daily. Active escitalopram (LEXAPRO) 10 MG tablet Take 1 Tab by mouth daily. 30 6 06/20/2009 Active Active Problems Problem Noted Date Diagnosed Date Multiple sclerosis 06/17/2009 Quadriparesis 06/17/2009 Abnormality of gait 06/17/2009 Protein S deficiency 06/17/2009 Resolved Problems Problem Noted Date Diagnosed Date Resolved Date Left hip pain 06/20/2009 06/20/2009 Falls frequently 06/17/2009 06/20/2009 Pain in limb 06/17/2009 06/20/2009 Sacroiliac joint pain 06/17/20092008 Cough 06/17/2009 06/20/2009 Family History Medical History Relation Name Comments Cancer Father stage IV colon cancer Relation Name Status Comments Father Social History Tobacco Use Types Packs/Day Years Used Date Smoking Tobacco: Former Cigarettes 1 25 0 03/22/1984 - 03/22/2009 Alcohol Use Standard Drinks/Week Comments No 0 (1 standard drink = 0.6 oz pur e alcohol) Comments No Sex and Gender Information Value Date Recorded Sex Assigned at Not on file Legal Sex Female 6:03 AM FITTER WELDER Gender Identity Not on file Sexual Orientation Not on file Occupation Industry Job Start Date Job End Date disabled Not on file Not on file Not on file Last Filed Vital Signs Vital Sign Reading Time Taken Comments Blood Pressure 116/78 09/21/2017 11:26 AM FITTER WELDER Pulse 90 09/21/2017 11:26 AM FITTER WELDER Temperature 36.4 C (97.6 F) 09/21/2017 11:26 AM FITTER WELDER Respiratory Rate 20 11/06/2015 12:26 PM CDT Oxygen Saturation 96% 09/21/2017 11:26 AM FITTER WELDER Inhaled Oxygen Concentration - - Weight 63 kg (139 lb) 09/21/2017 11:26 AM FITTER WELDER Height 157.5 cm (5' 2) 09/21/2017 11:26 AM FITTER WELDER Body Mass Index 25.42 09/21/2017 11:26 AM FITTER WELDER Plan of Treatment Health Maintenance Due Date Last Done Comments COLOGUARD (AGES 45-75) - COL ON CA SCREENING 1961 COLON MONITORING 1961 COLONOSCOPY - COLON CA SCREENING 1961 CT COLONOGRAPHY - COLON CA SCREENING 1961 Colorectal Cancer Screening 1961 FIT - COLON CA SCREENING 1961 FLEX SIG - COLON CA SCREENING 1961 LIPID TESTING 1961 MAMMOGRAM 1961 HIV SCREENING 1976 HEPATITIS C SCREENING 04/23/1979 DTAP/TDAP/TD VACCINES (1 - Tdap) 1980 PNEUMOCOCCAL VACCINE 50+ (1 of 1 - PCV) 2011 ZOSTER VACCINE (1 of 2) 2011 COVID-19 VACCINE (1 - 2023-2 5 season) 2024 DEPRESSION SCREENING 08/22/2024 INFLUENZA VACCINE (Season Ended) 2025 Respiratory Syncytial Virus (RSV) Vaccine Pt: or over 60 yrs (1 - 1-dose 75+ series) 2036 HEPATITIS B VACCINE Aged Out No longe r eligible based on patient's age to complete this topic HIB VACCINE Aged Out No longer eligi ble based on patient's age to complete this topic HPV VACCINE Aged Out No longer eligi ble based on patient's age to complete this topic MENINGOCOCCAL (Group B) VACC INE SHARED DECISION-MAKING Aged Out No longer eligibl e based on patient's age to complete this topic MENINGOCOCCAL GROUPS A/C/Y/W VACCINE Aged Out No longer eligible b ased on patient's age to complete this topic Insurance MEDICAID - OUT OF STATE Care Teams Barrow Worker Helper Relationship Specialty Start Date End Date Preston Patel MD [address] [place] [id number] PCP - General 03/01/18
--- OUTSIDE RECORDS SUMMARY | 2025-01-15 10:30 | XMS_ITS | Encounter Summary ---
Author Organization [employer] Address [address] [place] [address] Care Team Providers Care Loss Prevention Consultant Name Role Phone Unavailable Primary Care Provider Unavailabl e Encounter Details Date Type Department Care Team (Latest Contact Info) Description 04/12/2007 Outpatient Historical [facility] Denis Uribe DO [address] [place] [address] Multiple Sclerosis (CMS/HCC) (Primary Dx) Social History Tobacco Use Types Packs/Day Years Used Date Smoking Tobacco: Never Assessed Comments Unknown Sex and Gender Information Value Date Recorded Sex Assigned at Not on file Legal Sex Female 5:28 AM WELT RANDER Gender Identity Not on file Sexual Orientation Not on file documented as of this encounter Plan of Treatment Not on file documented as of this encounter Procedures Procedure Name Priority Date/Time Associated Diagnosis Comments HEMOGLOBIN AND HEMATOCRIT Routine 04/12/2007 9:35 AM CDT documented in this encounter Results * HEMOGLOBIN AND HEMATOCRIT (04/12/2007 9:35 AM CDT) HEMOGLOBIN 12.7 11.8 - 14.8 g/dL INTERFACE SYSTEM HEMATOCRIT 36.8 35.5 - 44.0 % INTERFACE SYSTEM 04/12/2007 9:35 AM CDT us Densi Uribe DO HEMATOLOGY ORDERABLES Edited INTERFACE SYSTEM Refer to clinic/hospital department documented in this encounter Visit Diagnoses Diagnosis Multiple sclerosis (CMS/HCC)- Primary Multiple sclerosis documented in this encounter
--- OUTSIDE RECORDS SUMMARY | 2025-01-15 10:30 | XMS_ITS | Referral Summary ---
Author Organization [facility] Office Center Address [address] [place] [address] Care Team Providers Care Research Laboratory Specialist Name Role Phone Ketty Peraza NP Primary Care Provider [phone] Allergies Active Allergy Reactions Criticality Noted Date [...] Continue care as per primary care provider. 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
--- OUTSIDE RECORDS SUMMARY | 2025-01-15 10:30 | XMS_ITS | Clinical Summary ---
Author Organization [facility] Address [address] [place] [address] Phone Care Team Providers Care Computer Operations Specialist Name Role Phone Unavailable Primary Care Provider Unavailabl e Social History Tobacco Use Types Packs/Day Years Used Date Smoking Tobacco: Never Assessed Comments Unknown Sex and Gender Information Value Date Recorded Sex Assigned at Not on file Legal Sex Female 5:28 AM MARKETING AND DEVELOPMENT COORDINATOR Gender Identity Not on file Sexual Orientation Not on file Plan of Treatment Health Maintenance Due Date Last Done Comments DTAP/TDAP/TD VACCINES (1 - Tdap) 1980 HPV/Cotest (21-29) 1982 CERVICAL CANCER SCREENING 1991 HPV/Cotest (30-65) 1991 PAP SMEAR 1991 BREAST CANCER SCREENING 2001 COLORECTAL SCREENING 2006 Colorectal Cancer Screening 2006 FIT-DNA Q 3 years 2006 FIT/FOBT Q 1 year 2006 Flex Sig/CT Colonography Q 5 years 2006 ZOSTER VACCINE (1 of 2) 2011 INFLUENZA VACCINE (#1) 2024 RSV VACCINE (60+ or ) (1 - 1-dose 75+ series) 2036
== END 2025-01-15 10:24 | disposition home or self-care (01) ==
LOC: ANHIMG 10:27
PROVIDERS: PCP Internal Medicine; Visit Provider Pain Medicine Interventional Pain Medicine
DX: M47.816 Spondylosis without myelopathy or radiculopathy, lumbar region (principal); M47.812 Spondylosis without myelopathy or radiculopathy, cervical region; G35 Multiple sclerosis; F17.200 Nicotine dependence, unspecified, uncomplicated
CPT/HCPCS: 72040; 72072; 72100